=== PATIENT | female | born 1995 | race Caucasian/White ===

== ENCOUNTER 2017-02-21 21:36 | Emergency (ER) | payer MEDICAID, OTHER ==
[2017-02-21 21:43] VITALS: BP 129/87
--- NOTE | 2017-02-28 07:10 | UC ---
Headache HPI - History Of Current Complaint Chief Complaint: UCGeneralIllness Stated Complaint: MIGRAINE/VOMITTING Time Seen by Provider: 02/21/17 21:42 Hx Obtained From: Patient Hx Last Menstrual Period: 02/20/17 ?: No Onset/Duration: Gradual Onset, Lasting Hours - 3 Onset Of Symptoms: Gradual Initially Headache Was: Moderate Currently Pain Is: Moderate Pain Intensity: 5 Pain Scale Used: 0-10 Numeric Timing: Constant Character: Throbbing Location of Headache: Diffuse Aggravating Factor: Bright Lights Allevating Factors: Nothing Associated Signs And Symptoms: Positive: Nausea. Negative: Seizure, Vomiting, Sinus Pressure, Fever, Neck Pain, Neck Stiffness, Decreased LOC, Visual Changes - Allergies/Home Medications Allergies/Adverse Reactions: Allergies Allergy/AdvReac Type Severity Reaction Status Date / Time Cefaclor [From Ceclor] Allergy Intermediate Rash Verified 02/21/17 21:43 Alcohol Allergy Mild Rash Verified 02/21/17 21:43 Latex Allergy Mild Rash Verified 02/21/17 21:43 Penicillins Allergy Mild Rash Verified 02/21/17 21:43 Povidone Iodine Allergy Mild Rash Verified 02/21/17 21:43 [From Betadine] Cefdinir [From Omnicef] Allergy Hives Verified 02/21/17 21:43 Clindamycin Allergy Hives Verified 02/21/17 21:43 Sodium Benzoate Allergy Hives Verified 02/21/17 21:43 [From Omnicef] Sulfa Antibiotics Allergy Hives Verified 02/21/17 21:43 PRE SCRUBS SKIN PREP Allergy Intermediate Unknown Uncoded 02/21/17 21:43 Reaction Details IVP DYE Allergy Unknown Uncoded 02/21/17 21:43 Reaction Details Home Medications: Home Medications [id number] [Excedrin Extra Strength] 2 tab PO DAILY [History Confirmed 02/21/17] PMH/Surg Hx/FS Hx/Imm Hx Neurological History: Migraine - Surgical History Surgical History: Yes Surgery Procedure, Year, and Place: RIGHT ELBOW SURGERIES. TONSILLECTOMY - Family History Known Family History: Positive: None Negative: Diabetes - Social History Alcohol Use: None Substance Use Type: Marijuana Substance Use Comment - Amount & Last Used: last used a few days ago Smoking Status (MU): Light Every Day Tobacco Smoker Type: Cigarettes Amount Used/How Often: 5 CIGS DAILY Have You Smoked in the Last Year: Yes Household Exposure Type: Cigarettes - Immunization History Most Recent Influenza Vaccination: NO Hx Tetanus, Diphtheria Vaccination: Yes Vaccination Up to Date: Yes Review of Systems Constitutional: Negative Skin: Negative Eyes: Negative ENT: Negative Respiratory: Negative Cardiovascular: Negative All Other Systems Reviewed And Are Negative: Yes Physical Exam Triage Information Reviewed: Yes Appearance: Well-Appearing, No Pain Distress, Well-Nourished Vital Signs: Initial Vital Signs Temp 98.3 F 02/21/17 21:40 Pulse 77 02/21/17 21:40 Resp 16 02/21/17 21:40 BP 129/87 02/21/17 21:40 Pulse Ox 100 02/21/17 21:40 Vital Signs Reviewed: Yes Eyes: Positive: Conjunctiva Clear ENT: Positive: Normal ENT inspection, Hearing grossly normal, Pharynx normal Neck exam: Normal Neck: Positive: Supple, Nontender Respiratory: Positive: Chest non-tender, Lungs clear, Normal breath sounds, No respiratory distress Cardiovascular: Positive: RRR, No Murmur, Pulses Normal Musculoskeletal Exam: Normal Musculoskeletal: Positive: Strength Intact Neurological Exam: Normal Neurological: Positive: Alert Skin Exam: Normal Headache Course/Dx - Differential Dx/Diagnosis Provider Diagnoses: headaches Discharge - Discharge Plan Condition: Stable Disposition: HOME Prescriptions: Ibuprofen TAB* [Motrin TAB* 600 MG] 600 mg PO Q6H PRN #20 tab PRN Reason: Headache Patient Education Materials: Acute Headache (ED) Forms: *Work Release Referrals: Saira Bales MD [Primary Care Provider] - If Needed
== END 2017-02-21 21:58 | disposition home or self-care (01) ==
LOC: UCCORT 21:36
DX: R51 Headache (principal); R11.2 Nausea with vomiting, unspecified; Z88.0 Allergy status to penicillin; Z88.2 Allergy status to sulfonamides; Z88.1 Allergy status to other antibiotic agents; Z91.041 Radiographic dye allergy status; Z91.040 Latex allergy status; F12.90 Cannabis use, unspecified, uncomplicated; F17.210 Nicotine dependence, cigarettes, uncomplicated
CPT/HCPCS: 99212; G0463